=== PATIENT | female | born 1950 | race Caucasian/White ===

== ENCOUNTER 2024-07-31 12:04 | Inpatient (IN) | payer MEDICARE ==
[2024-07-31 12:54] LABS: #Basophils 0.06 10x3/uL (0.0-0.2); %Basophils 0.6 % (0.0-1.0); %Eosinophils 0.3 % (0.0-10.0); %Lymphocytes 14.1 % (21.0-51.0); %Monocytes 5.8 % (0.0-10.0); %Neutrophils 78.9 % (42.0-75.0); Hematocrit 44.4 % (36.0-47.0); Hemoglobin 14.7 g/dL (12.0-16.0); Mean Corpuscular HGB CONC 33.1 g/dL (32.0-36.0); Mean Corpuscular Hemoglobin 31.8 pg (27.0-31.0); Mean Corpuscular Volume 96.1 fL (78.0-98.0); Mean Platelet Volume 9.5 fL (7.4-10.4); Platelet Count 296 10x3/uL (130-400); RBC Distribution Width 13.2 % (11.5-14.5); Red Blood Cell (RBC) Count 4.62 mill/uL (4.20-5.40)
[2024-07-31] MEDS ORDERED: Iopamidol 370 76% 100 ML VIAL ONE (13:04)
[2024-07-31 13:12] LABS: ALT (SGPT) 19 U/L (8-55); AST (SGOT) 27 U/L (5-34); Alkaline Phosphatase 54 U/L (40-110); Anion Gap 14 mmol/L (10-20); BUN (Urea Nitrogen) 15 mg/dL (9.8-20.1); Bilirubin, Total 0.8 mg/dL (0.2-1.2); Calc. Creatinine Clearance 0 mL/min (70-130); Calcium 9.5 mg/dL (7.8-10.44); Carbon Dioxide 20 mmol/L (23-31); Chloride 104 mmol/L (98-107); Estimated GFR 69; Globulin 3.3 g/dL (2.4-3.5); Glucose 182 mg/dL (83-110); Potassium 4.4 mmol/L (3.5-5.1); Protein, Total 7.3 g/dL (5.8-8.1); Sodium 134 mmol/L (136-145)
[2024-07-31 13:16] LABS: Troponin I 0.018 ng/mL (< 0.028)
[2024-07-31] MEDS ORDERED: Amiodarone 450 MG/9 ML VIAL ONE (14:14)
[2024-07-31] MEDS ORDERED: Dextrose 5% in Water 250 ML BAG (BBRAUN) ONE (14:14)
[2024-07-31] MEDS ORDERED: Amiodarone 150 MG/3 ML VIAL ONE (14:14)
[2024-07-31] MEDS ORDERED: NOREPINEPHRINE 8 MG/250 ML-D5W 250 ML ONE (14:19)
[2024-07-31] MEDS: Clopidogrel Bisulfate 300 MG TAB PO SCH (16:27)
[2024-07-31] MEDS: Sodium Chloride 0.9% 1,000 ML IV SCH ×2 (16:27→17:53)
[2024-07-31] MEDS ORDERED: NOREPINEPHRINE 8 MG/250 ML-D5W 250 ML IVPB SCH (18:00)
[2024-07-31] MEDS: Atorvastatin Calcium 40 MG TAB PO SCH (19:28)
[2024-07-31] MEDS: Amiodarone 450 MG, Admixture Fee 1 EACH in Dextrose 5% in Water 250 ML IVPB SCH (23:19)
[2024-08-01 04:21] LABS: #Basophils 0.04 10x3/uL (0.0-0.2); #Eosinophils Less than 0.03 10x3/uL (0.0-0.7); %Basophils 0.4 % (0.0-1.0); %Eosinophils 0.1 % (0.0-10.0); %Lymphocytes 19.4 % (21.0-51.0); %Monocytes 8.6 % (0.0-10.0); %Neutrophils 71.3 % (42.0-75.0); Hematocrit 36.8 % (36.0-47.0); Hemoglobin 12.3 g/dL (12.0-16.0); Mean Corpuscular HGB CONC 33.4 g/dL (32.0-36.0); Mean Corpuscular Hemoglobin 31.9 pg (27.0-31.0); Mean Corpuscular Volume 95.3 fL (78.0-98.0); Mean Platelet Volume 9.4 fL (7.4-10.4); Platelet Count 244 10x3/uL (130-400); RBC Distribution Width 13.5 % (11.5-14.5); Red Blood Cell (RBC) Count 3.86 mill/uL (4.20-5.40)
[2024-08-01 04:32] LABS: Hemoglobin A1c 5.2 % (4.0-6.0)
[2024-08-01 04:39] LABS: ALT (SGPT) 44 U/L (8-55); AST (SGOT) 191 U/L (5-34); Albumin 3.3 g/dL (3.4-4.8); Alkaline Phosphatase 41 U/L (40-110); Anion Gap 12 mmol/L (10-20); BUN (Urea Nitrogen) 9 mg/dL (9.8-20.1); Bilirubin, Total 0.9 mg/dL (0.2-1.2); Calc. Creatinine Clearance 54 mL/min (70-130); Calcium 8.3 mg/dL (7.8-10.44); Carbon Dioxide 19 mmol/L (23-31); Cardiac Risk 2.6 (Less than 4.5); Chloride 110 mmol/L (98-107); Cholesterol 138 mg/dl (< 200 Desired); Estimated GFR 88; Globulin 2.4 g/dL (2.4-3.5); Glucose 91 mg/dL (83-110); HDL Cholesterol 54 mg/dL (>60 Neg Risk); LDL Cholesterol, Calculated 69 mg/dL; Potassium 4.2 mmol/L (3.5-5.1); Protein, Total 5.7 g/dL (5.8-8.1); Sodium 137 mmol/L (136-145); Triglycerides 74 mg/dL (Less than 150)
[2024-08-01 05:21] VITALS: BMI 19.1
[2024-08-01] MEDS: Clopidogrel Bisulfate 75 MG TAB PO SCH (07:51)
[2024-08-01] MEDS: Acetaminophen 500 MG TAB PO PRN (07:52)
[2024-08-01] MEDS: Aspirin 81 mg Enteric Coated Tablet PO SCH ×2 (09:33→11:48)
[2024-08-02] MEDS ORDERED: Aspirin 81 mg Enteric Coated Tablet PO SCH (09:00)
[2024-08-02] MEDS: Pantoprazole DR 40 MG TAB PO SCH (12:45)
[2024-08-02] MEDS: Ezetimibe 10 MG TAB PO SCH (12:45)
[2024-08-02] MEDS: Senokot S 8.6-50 MG TAB PO SCH (20:06)
[2024-08-02] MEDS: Metoprolol Tartrate 25 MG TAB PO SCH (20:06)
[2024-08-02] MEDS: Polyethylene Glycol 3350 17 GM Packet PO SCH (20:06)
[2024-08-03 05:15] LABS: ALT (SGPT) 27 U/L (8-55); AST (SGOT) 55 U/L (5-34); Albumin 3.1 g/dL (3.4-4.8); Anion Gap 14 mmol/L (10-20); BUN (Urea Nitrogen) 11 mg/dL (9.8-20.1); Bilirubin, Direct 0.3 mg/dL (0.1-0.3); Bilirubin, Total 0.9 mg/dL (0.2-1.2); Calc. Creatinine Clearance 53 mL/min (70-130); Calcium 8.3 mg/dL (7.8-10.44); Carbon Dioxide 18 mmol/L (23-31); Chloride 106 mmol/L (98-107); Estimated GFR 84; Glucose 89 mg/dL (83-110); Potassium 4.1 mmol/L (3.5-5.1); Protein, Total 5.5 g/dL (5.8-8.1); Sodium 134 mmol/L (136-145)
[2024-08-03 05:20] LABS: Alkaline Phosphatase 39 U/L (40-110)
[2024-08-03] MEDS ORDERED: Ezetimibe 10 MG TAB PO SCH (09:00)
[2024-08-03] MEDS: Polyethylene Glycol 3350 17 GM Packet PO SCH (09:38)
[2024-08-03] MEDS: Pantoprazole DR 40 MG TAB PO SCH (09:38)
[2024-08-03] MEDS: Acetaminophen 500 MG TAB PO PRN (20:54)
[2024-08-03] MEDS: Lisinopril 5 MG TAB PO SCH (20:54)
[2024-08-04 11:20] VITALS: BP 98/52; TEMP 98
== END 2024-08-04 13:25 | disposition home or self-care (01) | DRG 324 ==
LOC: ERS 12:04 → CCL 12:38 → CCU 14:38 → 2NO 08-02 15:20
PROVIDERS: ADMIT Internal Medicine Cardiovascular Disease; ATTEND Internal Medicine
PROC: 4A023N7 Measurement of Cardiac Sampling and Pressure, Left Heart, Percutaneous Approach (ICD-10-PCS; principal; 2024-07-31)
PROC: 027034Z Dilation of Coronary Artery, One Artery with Drug-eluting Intraluminal Device, Percutaneous Approach (ICD-10-PCS; 2024-07-31)
PROC: 02F03ZZ Fragmentation in Coronary Artery, One Artery, Percutaneous Approach (ICD-10-PCS; 2024-07-31)
PROC: B2111ZZ Fluoroscopy of Multiple Coronary Arteries using Low Osmolar Contrast (ICD-10-PCS; 2024-07-31)
PROC: B2151ZZ Fluoroscopy of Left Heart using Low Osmolar Contrast (ICD-10-PCS; 2024-07-31)
PROC: 02HV33Z Insertion of Infusion Device into Superior Vena Cava, Percutaneous Approach (ICD-10-PCS; 2024-07-31)
DX: I21.09 ST elevation (STEMI) myocardial infarction involving other coronary artery of anterior wall (principal); I42.9 Cardiomyopathy, unspecified; I25.10 Atherosclerotic heart disease of native coronary artery without angina pectoris; K21.9 Gastro-esophageal reflux disease without esophagitis; I10 Essential (primary) hypertension; E78.5 Hyperlipidemia, unspecified; Z95.5 Presence of coronary angioplasty implant and graft; Z79.899 Other long term (current) drug therapy
CPT/HCPCS: 33210; 36415; 36416; 36556; 80048; 80053; 80061; 80076; 83036; 84484; 85025; 85347; 92941; 92972; 93005; 93010; 93306; 93458; 93798; 94760; C1725; C1751; C1761; C1769; C1874; C1887; C9606; J0282; J7030; J7070; Q9967